=== PATIENT | female | born 1985 | race Caucasian/White ===

== ENCOUNTER → 2018-04-08 | Outpatient (CLI) | payer MEDICARE, OTHER ==
[~2018-04-08] MED LIST: HYDACE5 PO
== END ==
LOC: LAB SHORT 10:52 → LAB 10:52
PROVIDERS: Obstetrics & Gynecology
DX: R87.89 Other abnormal findings in specimens from female genital organs (principal)
CPT/HCPCS: 87624; 88142

== ENCOUNTER → 2018-04-08 | Outpatient (CLI) | payer MEDICARE, OTHER | END | disposition home or self-care (01) | LOC: LAB SHORT 12:30 → PLD 12:30 | DX: N87.9 Dysplasia of cervix uteri, unspecified (principal); R87.89 Other abnormal findings in specimens from female genital organs | CPT/HCPCS: 88305 ==

== ENCOUNTER → 2019-05-12 | Outpatient (CLI) | payer MEDICARE, OTHER ==
[2019-05-14 15:06] LABS: HPV 16 Negative (Negative); HPV 18 Negative (Negative); HPV OTHER HR TYPES Negative (Negative)
== END | disposition home or self-care (01) ==
LOC: LAB 10:37 → LAB SHORT 10:37
PROVIDERS: Obstetrics & Gynecology
DX: Z01.419 Encounter for gynecological examination (general) (routine) without abnormal findings (principal)
CPT/HCPCS: 87624; G0123

== ENCOUNTER → 2024-10-27 | Outpatient (CLI) | payer BC ==
[2024-10-27 11:09] LABS: BASOPHILS ABSOLUTE AUTO 0.05 K/mm3 (0.00-0.23); BASOPHILS PERCENT AUTO 1 % (0-2); EOSINOPHILS ABSOLUTE AUTO 0.05 K/mm3 (0.00-0.68); EOSINOPHILS PERCENT AUTO 1 % (0-6); Hematocrit 42.5 % (33.0-51.0); Hemoglobin 14.9 g/dL (11.5-16.0); IMMATURE GRAN ABSOLUTE AUTO 0.02 K/mm3 (0.00-0.10); IMMATURE GRAN PERCENT AUTO 0 % (0-1); LYMPHOCYTES ABSOLUTE AUTO 0.82 K/mm3 (0.84-5.20); LYMPHOCYTES PERCENT AUTO 12 % (21-46); MONOCYTES ABSOLUTE AUTO 0.64 K/mm3 (0.16-1.47); MONOCYTES PERCENT AUTO 10 % (4-13); Mean Corpuscular HGB 34.2 pg (26.0-34.0); Mean Corpuscular HGB Conc 35.1 g/dL (31.5-36.5); Mean Corpuscular Volume 98 fL (80-100); Mean Platelet Volume 9.5 fL (9.1-12.4); NEUTROPHILS ABSOLUTE AUTO 5.11 K/mm3 (1.96-9.15); NEUTROPHILS PERCENT AUTO 76 % (41-73); Platelet Count 264 K/mm3 (150-400); RDW Coefficient Variation 12.4 % (11.7-14.2); RDW Standard Deviation 44.7 fL (35.1-46.3); Red Blood Cell Count 4.36 M/mm3 (3.80-5.20); White Blood Cell Count 6.69 K/mm3 (4.00-11.30)
[2024-10-27 16:31] LABS: Bacterial Vaginosis PCR Negative (NEGATIVE); Candida Group, PCR NOT DETECTED (NOT DETECT); Candida glabrata-krusei, PCR NOT DETECTED (NOT DETECT)
[2024-10-27 17:03] LABS: Chlamydia Trachomatis Cervix NOT DETECTED (NOT DETECT); Neisseria Gonorrhoea Cervix NOT DETECTED (NOT DETECT)
== END | disposition home or self-care (01) ==
LOC: LAB SHORT 11:05 → LAB 11:05
DX: N93.9 Abnormal uterine and vaginal bleeding, unspecified (principal)
CPT/HCPCS: 85025; 87481; 87491; 87591; 87661; 87801

== ENCOUNTER → 2025-02-23 | Outpatient (CLI) | payer BC ==
[2025-03-02 11:08] LABS: HPV HIGH RISK BY TMA Not Detected; HPV SOURCE Cervical
== END ==
LOC: LAB SHORT 15:03 → LAB 15:03
PROVIDERS: Advanced Practice Midwife
DX: Z01.419 Encounter for gynecological examination (general) (routine) without abnormal findings (principal)
CPT/HCPCS: 87624; G0123

== ENCOUNTER → 2025-09-03 | Outpatient (CLI) | payer BC | LOC: LAB 12:47 → LAB SHORT 12:47 | DX: R31.9 Hematuria, unspecified (principal) | CPT/HCPCS: 87086 ==

== ENCOUNTER 2025-10-06 06:48 | Day surgery (SDC) | payer BC ==
[~2025-10-06] VITALS: Ht 154.9 cm; Wt 76.2 kg
[2025-10-06] MEDS ORDERED: PROP10 (07:33)
[2025-10-06] MEDS ORDERED: ERGO50000 (07:33)
[2025-10-06] MEDS ORDERED: ALBU90OI (07:34)
[2025-10-06] MEDS ORDERED: ENSKYCE 28 TAB1 EACH (07:34)
[2025-10-06] MEDS ORDERED: Prinivil10 MG (07:34)
[2025-10-06] MEDS ORDERED: GABA100 (07:35)
[2025-10-06] MEDS ORDERED: LORA10ER (07:35)
[2025-10-06] MEDS ORDERED: Midazolam HCL 1 MG/ML 5MLVIAL ONE (08:01)
[2025-10-06 11:07] VITALS: BP 141/97
== END 2025-10-06 09:45 | disposition home or self-care (01) ==
LOC: ORSCSDS 06:48
PROVIDERS: Specialist
PROC: 0DB98ZX Excision of Duodenum, Via Natural or Artificial Opening Endoscopic, Diagnostic (ICD-10-PCS; principal; 2025-10-06 08:15)
PROC: 0DBE8ZX Excision of Large Intestine, Via Natural or Artificial Opening Endoscopic, Diagnostic (ICD-10-PCS; principal; 2025-10-06 08:15)
PROC: 0DB68ZX Excision of Stomach, Via Natural or Artificial Opening Endoscopic, Diagnostic (ICD-10-PCS; principal; 2025-10-06 08:15)
DX: R19.4 Change in bowel habit (principal); R12 Heartburn; K64.4 Residual hemorrhoidal skin tags; R63.4 Abnormal weight loss; J45.909 Unspecified asthma, uncomplicated; F41.9 Anxiety disorder, unspecified; F32.A Depression, unspecified; Z79.899 Other long term (current) drug therapy
CPT/HCPCS: 88305; 88342; J2250; J2704; J7120